=== PATIENT | female | born 1960 | race Caucasian/White ===

== ENCOUNTER 2023-01-01 01:02 | Day surgery (SDC) | payer BC, SELFPAY ==
[2022-12-18 13:49] VITALS: BMI 35.5
[2023-01-01 08:57] VITALS: BP 149/90; PULSE 71; RESP 16; TEMP 36.4; O2SAT 100
--- NOTE | 2023-01-01 09:07 | P.PNAN_ITS ---
Anes - Initial Pre Proc Eval Procedure: Operation Date: 01/01/23 10:00 Proposed Procedures p Colonoscopy - Reinier Bolivar MD Date/Time: 01/01/23 09:07 Surgeon: Reinier Bolivar MD Pre Op Diagnosis: post Colguard Patient Data Age: 62 Gender: F Height: 1.73 m Weight: 108.2 kg Last Vital Signs Temp 36.4 C L 01/01/23 08:57 Pulse 71 01/01/23 08:57 Resp 16 01/01/23 08:57 BP 149/90 H 01/01/23 08:57 Pulse Ox 100 01/01/23 08:57 O2 Del Method Room Air 01/01/23 08:57 Allergies Allergy/AdvReac Type Severity Reaction Status Date / Time No Known Allergies Allergy Unverified 01/01/23 08:55 Home Medications Medication Instructions Recorded Confirmed Type ergocalciferol (vitamin D2) 1,250 1,250 mcg PO WEEKLY 12/18/22 12/18/22 History mcg (50,000 unit) capsule hydrochlorothiazide 25 mg tablet 25 mg PO DAILY 12/18/22 12/18/22 History metformin 500 mg tablet,extended 500 mg PO DAILY 12/18/22 12/18/22 History release 24 hr Patient hx anesthesia problems: none Family hx anesthesia problems: none Results Review: All pre-operative results and documents have been reviewed as part of the pre-operative evaluation. [facility] Past Medical History Medical History (Updated 01/01/23 @ 09:07 by Jorgito Padilla MD) Diabetes HTN (hypertension) Obesity Social History Social History Smoking status: Never smoker Alcohol intake: never Substance use: never Living arrangements: with family Spiritual care concerns: No Anes - Eval Final PreProcedure Day of Procedure 01/01/23 09:07 Patient weight: obese Heart: regular rate and rhythm Lungs: clear to auscultation and normal air movement Airway: Mallampati scale class II Neurological: alert and oriented Last oral intake: >/= 8 hours ASA classification: III Emergent: no Anesthetic plan: proceed Anesthesia type and monitoring: general GIVS Results Review: All pre-operative results and documents have been reviewed as part of the pre- operative evaluation. Informed Consent: The patient's anesthetic plan and its attendant risks and benefits were discussed with the patient/family/POA. Questions were solicited and answers provided to the satisfaction of the patient/family/POA.
--- NOTE | 2023-01-01 09:07 | PM.HPGS ---
History of Present Illness History of Present Illness Consent: Risks, benefits, and alternatives have been discussed and questions answered. Patient agrees to proceed with procedure. Chief complaint: post Colguard Narrative: Mallika Lynn is a 62 year old female Referred for colon cancer screening. She recently performed a Cologuard test which was positive. Review of Systems Review of Systems: All systems reviewed & are unremarkable except as noted in HPI and below PMFSH Past Medical History Medical History (Updated 01/01/23 @ 10:00 by Reinier Bolivar MD) Diabetes HTN (hypertension) Obesity Social History Social History Smoking status: Never smoker Alcohol intake: never Substance use: never Living arrangements: with family Spiritual care concerns: No Meds Home Medications and Allergies Home Medications Medication Instructions Recorded Confirmed Type ergocalciferol (vitamin D2) 1,250 1,250 mcg PO WEEKLY 12/18/22 12/18/22 History mcg (50,000 unit) capsule hydrochlorothiazide 25 mg tablet 25 mg PO DAILY 12/18/22 12/18/22 History metformin 500 mg tablet,extended 500 mg PO DAILY 12/18/22 12/18/22 History release 24 hr Allergies Allergy/AdvReac Type Severity Reaction Status Date / Time No Known Allergies Allergy Unverified 01/01/23 08:55 Vital Signs Vital Signs - 24 hr 01/01/23 08:57 Temperature 36.4 C L Pulse Rate 71 Respiratory Rate 16 Blood Pressure 149/90 H Pulse Oximetry 100 Oxygen Delivery Room Air Exam Resp: Auscultation: clear to auscultation bilaterally Cardio: Rate: regular rate Rhythm: regular rhythm GI: GI Palp: Yes Soft to palpation and No Tenderness to palpation present (GI) Assessment and Plan Assessment and plan (1) Colon cancer screening: Code(s): Z12.11 - Encounter for screening for malignant neoplasm of colon Status: Acute Assessment and Plan: Colonoscopy with possible biopsy or polypectomy or cautery or injection of substances.
[2023-01-01] MEDS: LACTATED RINGERS 1,000 ML 150 ML IV CONT (09:10)
[2023-01-01 09:16] LABS: Glucose Point of Care 179 mg/dl (65-105)
[2023-01-01 10:03] VITALS: BP 111/60; PULSE 72; RESP 20; O2SAT 100
[2023-01-01 10:13] VITALS: BP 143/69; PULSE 62; RESP 20; O2SAT 99
[2023-01-01 10:23] VITALS: BP 148/75; PULSE 60; RESP 18; O2SAT 100
== END 2023-01-01 10:31 | disposition home or self-care (01) ==
PROVIDERS: PCP Family Medicine; Visit Provider Internal Medicine Gastroenterology
PROC: 0DJD8ZZ Inspection of Lower Intestinal Tract, Via Natural or Artificial Opening Endoscopic (ICD-10-PCS; CPT 45378; principal; 2023-01-01 10:00)
DX: Z12.11 Encounter for screening for malignant neoplasm of colon (principal); K64.8 Other hemorrhoids; K57.30 Diverticulosis of large intestine without perforation or abscess without bleeding; I10 Essential (primary) hypertension; E11.9 Type 2 diabetes mellitus without complications; E66.9 Obesity, unspecified; Z68.36 Body mass index [BMI] 36.0-36.9, adult; Z79.84 Long term (current) use of oral hypoglycemic drugs
CPT/HCPCS: 45378; 82948; J2704; J7120